=== PATIENT | male | born 1955 | race Two or more races ===

== ENCOUNTER 2020-12-22 06:24 | Day surgery (SDC) | payer OTHER | END 2020-12-22 13:10 | disposition home or self-care (01) | LOC: AMB-ENDOS 06:24 | PROVIDERS: ATTEND Surgery | DX: K62.89 Other specified diseases of anus and rectum (principal); K62.7 Radiation proctitis; Z20.822 Contact with and (suspected) exposure to COVID-19; Z12.11 Encounter for screening for malignant neoplasm of colon ==

== ENCOUNTER 2021-10-07 07:31 | Outpatient (CLI) | payer OTHER | END 2021-10-07 07:42 | disposition home or self-care (01) | LOC: RX STUDY 07:31 | PROVIDERS: ATTEND Surgery | DX: C20 Malignant neoplasm of rectum (principal); Z93.3 Colostomy status; K62.7 Radiation proctitis ==

== ENCOUNTER 2021-10-26 10:15 | Inpatient (IN) | payer OTHER ==
[~2021-10-26] VITALS: Ht 160 cm; Wt 55.8 kg
[2021-10-26] MEDS ORDERED: SYNTHROID75 MCG PO (13:33)
[2021-10-26] MEDS ORDERED: ULTRAM50 MG PO (13:34)
[2021-10-28] MEDS ORDERED: ATORVASTATIN CA40 MG (11:00)
[2021-10-28] MEDS ORDERED: FAMOTIDINE40 MG (11:00)
[2021-10-28] MEDS ORDERED: FINASTERIDE5 MG (11:00)
[2021-10-28] MEDS ORDERED: GABAPENTIN800 M1 (11:00)
[2021-10-31] MEDS ORDERED: ULTRAM50 MG PO (14:45)
[2021-10-31] MEDS ORDERED: GABAPENTIN300 MG PO (14:45)
[2021-10-31] MEDS ORDERED: INTESTINEX680 M1 PO (14:46)
[2021-10-31] MEDS ORDERED: QUESTRAN PACKET4 GM PO (14:46)
[2021-10-31] MEDS ORDERED: ANTI-GAS166 MG PO (14:46)
== END 2021-11-01 08:17 | disposition home or self-care (01) | DRG 330 ==
LOC: EDSTATUS 10:15 → ADM 10:15 → O/R 10-28 08:09 → SURH 10-28 08:09
PROVIDERS: ADMIT Surgery; ATTEND Surgery
PROC: 0DTU4ZZ Resection of Omentum, Percutaneous Endoscopic Approach (ICD-10-PCS; 2021-10-28)
PROC: 0DBE4ZZ Excision of Large Intestine, Percutaneous Endoscopic Approach (ICD-10-PCS; principal; 2021-10-28 10:45)
DX: Z43.3 Encounter for attention to colostomy (principal); C20 Malignant neoplasm of rectum; K62.7 Radiation proctitis; Z20.822 Contact with and (suspected) exposure to COVID-19; E03.8 Other specified hypothyroidism

== ENCOUNTER 2022-11-02 06:34 | Inpatient (IN) | payer OTHER ==
[~2022-11-02] VITALS: Ht 167.6 cm; Wt 59.0 kg
[~2022-11-02 06:34] MED LIST: ANTI-GAS166 MG PO; ATORVASTATIN CA40 MG; FAMOTIDINE40 MG; FINASTERIDE5 MG; GABAPENTIN300 MG PO; GABAPENTIN800 M1; INTESTINEX680 M1 PO; QUESTRAN PACKET4 GM PO; SYNTHROID75 MCG PO; ULTRAM50 MG PO
[2022-11-04] MEDS ORDERED: METRONIDAZOLE500 MG PO (12:40)
[2022-11-04] MEDS ORDERED: CIPRO500 MG PO (12:40)
== END 2022-11-04 15:03 | disposition home or self-care (01) | DRG 376 ==
LOC: AMB-ENDOS 06:34 → SURG 09:43 → O/R 09:43 → SURG 10:02 → AMB-ENDOS 14:15 → SURG 11-04 15:03
PROVIDERS: ADMIT Surgery; ATTEND Surgery
PROC: 0DJD8ZZ Inspection of Lower Intestinal Tract, Via Natural or Artificial Opening Endoscopic (ICD-10-PCS; principal; 2022-11-02)
PROC: BW21ZZZ Computerized Tomography (CT Scan) of Abdomen and Pelvis (ICD-10-PCS; 2022-11-02)
DX: C20 Malignant neoplasm of rectum (principal); K62.4 Stenosis of anus and rectum; K62.7 Radiation proctitis; K64.8 Other hemorrhoids; Z53.09 Procedure and treatment not carried out because of other contraindication; Z92.3 Personal history of irradiation

== ENCOUNTER 2024-06-12 07:29 | Day surgery (SDC) | payer OTHER ==
[~2024-06-12 07:29] MED LIST changes: +CIPRO500 MG PO; +METRONIDAZOLE500 MG PO
[2024-06-12] MEDS ORDERED: MIDAZOLAM HCL 2 MG/2 ML VIAL IV ONE (13:00)
[2024-06-12] MEDS ORDERED: DIPHENHYDRAMINE HCL 50 MG/ML VIAL 1ML IV ONE (13:00)
[2024-06-12] MEDS ORDERED: fentaNYL CITRATE 50 MCG/ML AMPUL IV ONE (13:00)
== END 2024-06-12 14:30 | disposition home or self-care (01) ==
LOC: CIR.AMB 07:29
PROVIDERS: ATTEND Surgery
DX: C20 Malignant neoplasm of rectum (principal); K62.7 Radiation proctitis; Z91.041 Radiographic dye allergy status